=== PATIENT | male | born 1965 | race Caucasian/White ===

== ENCOUNTER 2023-09-28 06:50 | Outpatient (CLI) | payer OTHER, SELFPAY | END 2023-09-28 06:51 | disposition home or self-care (01) | LOC: INJ CL 06:51 | PROVIDERS: PCP Family Medicine; Visit Provider Family Medicine | DX: M54.16 Radiculopathy, lumbar region (principal); M51.26 Other intervertebral disc displacement, lumbar region | CPT/HCPCS: 64483; J1100; Q9966 ==

== ENCOUNTER 2023-12-14 06:40 | Outpatient (CLI) | payer OTHER, SELFPAY | END 2023-12-14 06:41 | disposition home or self-care (01) | LOC: INJ CL 06:40 | PROVIDERS: PCP Family Medicine; Visit Provider Family Medicine | DX: M54.16 Radiculopathy, lumbar region (principal); M51.26 Other intervertebral disc displacement, lumbar region | CPT/HCPCS: 64483; J0702; Q9966 ==

== ENCOUNTER 2025-07-06 13:25 | Emergency (ER) | payer OTHER, SELFPAY ==
--- OUTSIDE RECORDS SUMMARY | 2025-07-06 13:28 | XMS_ITS | Clinical Summary ---
Author Organization [facility] Address [address] [place] [address] Care Team Providers Care Smoke And Flame Specialist Name Role Phone Elsewhere, Pcp Primary Care Provider Unavailabl e Source Comments Patient records contain information from all sites at [facility]. For routine questions regarding patient records, call [phone] during business hours, M-F 8:00 AM - 5:00 PM Central Time. Record requests for emergency care only can be directed to [phone] at any time.[facility] Allergies Active AllergyReactionsCriticalityNoted DateCommentsAtorvastatinMyalgia 09/16/20186384ItvuzmvzvnZligq67/20/2015 Not allergy, just side effects of cough and not feeling well 2014. MetforminGI fvgnygwuqik94/05/0173OnxtuzWyht22/20/2006PravastatinOther (see comments)09/16/2018 Didn't feel well. AdrhuhwhzxasCicbvwerjong76/04/2022 Medications * This document contains information received from the source organization and may not represent a complete record from that organization. MedicationSigDispense QuantityRefillsLast FilledStart DateEnd DateStatus doxazosin (CARDURA) 4 mg tablet Take 4 mg by mouth daily.05/30/2021ctive tacrolimus (PROTOPIC) 0.1 % ointment Apply topically.05/02/2020Active triamcinolone (KENALOG) 0.1 % cream Apply topically.06/13/2021ctive aspirin 81 mg chewable tablet CHEW AND SWALLOW 1 TABLET BY MOUTH DAILY WITH BREAKFAST 36 tablet ctive glimepiride (AMARYL) 1 mg tablet Take 1 mg by mouth daily.03/30/2022ctive chlorthalidone (HYGROTON) 25 mg tablet Take 0.5 tablets (12.5 mg total) by mouth daily. Patient taking 12.5 mg daily 45 tablet ctive Additional Information Patient taking differently:12.5 mg oral Daily,Patient taking 25 mg daily, Reported on 05/01/2025 rosuvastatin (CRESTOR) 5 mg tablet Take 1 tablet (5 mg total) by mouth once a week. 12 tablet ctive carvediloL (COREG) 6.25 mg tablet TAKE 1 TABLET BY MOUTH TWICE A DAY WITH MEALS 60 tablet 06/23/2022ctive Additional Information Patient not taking.Reported on 05/01/2025 ezetimibe (ZETIA) 10 mg tablet Take 1 tablet (10 mg total) by mouth daily. 90 tablet 4Active cyclobenzaprine (FlexeriL) 10 mg tablet Take 10 mg by mouth as needed for muscle spasms.Active evolocumab (Repatha SureClick) 140 mg/mL pen injector injection Inject 1 mL (140 mg total) under the skin every 14 (fourteen) days. 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 Will recheck. Feb 2016: ALT 65, AST 45. December 2016: AST normal, ALT 63 Qxvnfaqbzhdvpqwnjbrx54/15/2016 Overview (03/19/2022): October 2015: ASCVD Risk Coal Digger: 7.9 % 10 Year risk after info entered, need to discuss statin at appointment. November 2015: Atorvastatin (Lipitor) started 10mg. Stopped after 2 weeks due to side effects. December 2016: trying pravastatin 10mg, ASCVD Risk Coal Digger: 9.2 % 10 Year risk after info entered prior to starting pravastatin. STopped pravastatin due to side effects. Feb 2019: Trying zetia. Only took short time, had side effects, but couldn't remember what. Mar 2021: Rosuvastatin (Crestor) 5mg every other day. Patient reports feeling cruddy ( Per phonemessage 05/07/2021) Diabetes Mellitus Type 2 Without Qjixantoaudy62/12/2015 Overview (03/19/2022): October 2014: fasting was 126. Hemoglobin A1c was 5.14 October 2015: fasting 135 and A1c 5.7. Prediabetes ordered. December 2015: fasting 130. December 2016: fasting 105. Mar 2018: Fasting 155, Hemoglobin A1c 6.3. Changed prediabetes to Type 2 Diabetes diagnosis. Feb 2020: Hemoglobin A1c 7.0. Starting metformin XR 500mg. Apr 2020: Had constipation and Emergency room visit, not sure was metformin. June 2020: Trying to slowly increase metformin 1 day more of taking metformin each week until taking 1 500mg tab a day. Other Intervertebral Disc Displacement Lumbar Tforwn2208/12/2014 Overview (03/19/2022): 2008 Lumbar MRI: L3-4 and L5-S1 disc bulge/annular tear. [id number]: physical therapy at [facility], some help. Lumbar MRI November 2014: shows improvement in L4-5 and L5-S1 disc herniations, multiple level degenerative disc changes. December 2014: PDR MedX program. April 2015: L4-[address] Motta. good benefit but short lived. ~ August 2015:L4-L5 Interlaminar epidural steroid injection by Dr. Motta. September 2015: started gabapentin (neurontin), side effects very groggy after trying 2 times so Patient stopped. Jun 2016: [facility] Dr. Chaparro Consult, repeat MRI ordered. Follow up with Dr. Chaparro Jul 2015, considering facet joint injection. December 2016: follow up with Dr. Chaparro, medrol dosepak. No Surgery indicated after reviewing repeat Lumbar Spine MRI December,. Mar 2019 to June 2019: physical therapy at [facility] with Javan Santos, 8 visits. Hypertension Essential Grregtu2507/20/2014 Overview (03/19/2022): October 2014: starting lisinopril for blood pressure. Almost immediate side effects of cough, feelingfunny, poor sleep so stopping lisinopril and changed to hydrochlorothiazide. January 2015: increased hydrochlorothiazide from 12.5 to 25mg. June 2015: adding amlodipine. Side effects Patient did not tolerate. September 2015: continue hydrochlorothiazide, adding losartan 12.5mg. December 2016: increased losartan to 50mg. Aug 2017: When on losartan was feeling lethargic, Erectile problems and muscle cramping, and within 2 days of stopping it symptoms all went away September 2018: Added amlodipine 5mg to hydrochlorothiazide. August 2019: Patient self stopped hydrochlorothiazide due to joint pain approximately May 2019. Continuing amlodipine. September 2019: Blood pressure high so increased amlodipine to 10mg. October 2019: Due to skin rash, decreased amlodipine to 5mg. Feb 2020: increased amlodipine back up to 10mg. May 2020: Due to worsening rash, stopping amlodipine. STarting doxazosin 1mg at night. June 2020: increased doxazosin to 2mg. Then doubled to 4mg. Jul 2020: back down to doxazosin 2 mg a day, decreased from previous 4 mg due to his side effects when he was at 4 mg of feeling his heart palpitations. Those palpitations resolved the next day afterdecreasing from 4 mg down to 2 mg dose. Mar 2021: increased doxazosin to 3mg. May 2021: Chlorthalidone 12.5mg added. May 2021: Increased Chlorthalidone to 25mg, continue Doxazosin at 4mg. Dermatitis Eqatmglyfh96/28/2004Lichen Simplex Arwkafhff19/28/2004Obesity Qgusoilbmtu77/28/2004 Resolved Problems ProblemNoted DateDiagnosed DateResolved DatePain Chest Encounters DateTypeDepartmentCare NdwmQykiazafwbz67/17/2025Clinical Communication Department of Cardiovascular Diseases in [address] [phone] Carmine Magana MPAS, P.A.-C. 05/01/2025 3:00 PM CDTOffice Visit Department of Cardiovascular Diseases in [address] [address] Sly Ventura M.D. Doherty, Sean R, MPAS, P.A.-C. 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 from Last 3 Months Family History Medical HistoryRelationNameCommentsCoronary artery diseaseFatherLowell HypertensionFatherLowellRelationNameStatusCommentsFatherLowell Social History Tobacco UseTypesPacks/DayYears UsedDateSmoking Tobacco: NeverSmokeless Tobacco: Never Tobacco Cessation:Counseling Given: Not Answered Alcohol UseStandard Drinks/WeekCommentsYes2 (1 standard drink = 0.6 oz pure alcohol)Humiliation, Afraid, Rape, and Kick questionnaireAnswerDate Recorded Within the last year, have you been afraid of your partner or ex-partner?No 03/23/2022Within the last year, have you been humiliated or emotionally abused in other ways by your partner or ex-partner?No03/23/2022Within the last year, have you been kicked, hit, slapped, or otherwise physically hurt by your partner or ex-partner?No03/23/2022Within the last year, have you been raped or forced to have any kind of sexual activity by your partner or ex-partner?No09/06/2022 Hunger Vital SignAnswerDate RecordedWithin the past 12 months, you worried that your food would run out before you got the money to buymore.Never true03/23/2022 Within the past 12 months, the food you bought just didn't last and you didn't have money to get more.Never true03/23/2022RAPARE - TransportationAnswerDate RecordedIn the past 12 months, has lack of transportation kept you from medical appointments or from getting medications?No03/23/2022In the past 12 months, has lack of transportation kept you from meetings, work, or from getting things needed for daily living?No03/23/2022Housing Stability Vital SignAnswerDate RecordedIn the last 12 months, was there a time when you were not able to pay the mortgage or rent on time?No03/23/2022In the last 12 months, how many places have you lived?In the last 12 months, was there a time when you did not have a steady place to sleep or slept [place] (including now)?No 03/23/2022ostpartum DepressionAnswerDate RecordedPHQ-9 Total Score (max 27)0 04/07/2022EducationAnswerDate RecordedWhat is the highest level of school you have completed or the highest degree you have received?12th grade03/23/2022ex and Gender InformationValueDate RecordedSex Assigned at UpoopZrmc82/12/2022 7:37 PM CDTLegal VksWowp39/06/2019 8:34 AM CSTGender KjpvmptkUqyd69/12/2022 7:37 PM CDTSexual OpznllwddbaIdsnpyyp57/12/2022 7:37 PM CDT Last Filed Vital Signs Vital SignReadingTime TakenCommentsBlood Vvzpcbvu159/8505/01/2025 2:43 PM CDT Ptuas147805/01/2025 2:41 PM XPAMihqmkmlvdz27.3 ??C (97.3 ??F)05/01/2025 2:41 PM CDTRespiratory Hbha204503/22/2022 4:30 PM CDTOxygen Jyuasmtyqk59%05/01/2025 2:41 PM CDTInhaled Oxygen Concentration--Ichnqw597 kg (270 lb 15.1 oz)05/01/2025 2:41 PM KLZMueqwz375 cm (5' 11.26)07/23/2022 1:00 PM CSTBody Mass Index37.51 07/23/2022 1:00 PM HOME CARE MANAGER RN Plan of Treatment Health MaintenanceDue DateLast DoneCommentsCT Xkfonlqdwrsq01/03/1964Cologuard 1963 9140Seweepspdup86/03/1964Colorectal Cancer Qnweizdtb68/03/1964Diabetic Eye Exam1963Diabetic Office Visit with Foot Exam1963FIT1963HIV Mrionyvip05/03/1964Hepatitis C Lhxgkqfja54/03/1964Office Visit for Blood Pressure Check / Re-check1963Urine Ouhgntn17 1963DTaP,Tdap,and Td Vaccines (1 - Tdap)12/12/1982RSV vaccine - (32-36 weeks) or 50+ years (1 - Risk 50-74 years 1-dose series)12/12/2013Zoster Vaccines (1 of 2)12/12/2013 Hepatitis B Vaccines (1 of 3 - Risk 3-dose series)4Depression Screening (Annual PHQ-2)5Creatinine Level (Kidney Function Test)09/06/2024 09/06/2023, 12/14/2022, 11/30/2022, Additional history existsPotassium Level , 12/14/2022, 11/30/2022, Additional history existsSodium Level5009/06/2023, 12/14/2022, 11/30/2022, Additional history exists COVID-19 Vaccine ( season), 06/13/2021, 10/24/2020, Additional history existsInfluenza Vaccine (#1)/ Hemoglobin A1C6003/05/2025, 11/30/2024, 07/28/2024, Additional history existsLipid (Cholesterol) Trgtsuuda33, 03/25/2023, 12/24/2022, Additional history existsPneumococcal vaccine (50+ years)Xkhvsugyh26/22/2025IPV VaccinesAged OutNo longer eligible based on patient's age to complete this topic Medical Devices ImplantedTypeAreaManufacturerDevice IdentifierShelf Expiration DateModel / Serial / LotStnt Synergy Xd De 4.00x24 - [id number] Implanted:Qty: 1 on 03/22/2022 by [facility] StentN/A: CoronaryBoston Owbytgecmi89/18/[id number] / / [id number]:Distal RCA Procedures Procedure NamePriorityDate/TimeAssociated DiagnosisCommentsLIPID PANEL, SRoutine 03/25/2023 1:02 PM CDT Hypercholesterolemia BASIC METABOLIC PANEL, S/AFnwsynb92/17/2022 8:35 AM HOME CARE MANAGER RN Pain Chest Other Hyperlipidemia Coronary Stent Status Post HEMOGLOBIN A1C, BSTAT03/20/2022 2:35 PM CDT from Last 3 Months or Most Recently Relevant to Health Maintenance Results * (ABNORMAL) Lipid Panel (03/25/2023 1:02 PM CDT)ComponentValueRef RangeTest MethodAnalysis TimePerformed AtPathologist IvgxkdvnjRlwxfsxzwecxk498(H)mg/dL 03/25/2023 1:29 PM CDTCNFLComment: ----REFERENCE VALUE---- Normal: <150 mg/dL Borderline High: 150-199 mg/dL High: 200-499 mg/dL Very High: > or =500 mg/dL Cholesterol, Bnpzh663sv/dL03/25/2023 1:29 PM CDTCNFLComment: ----REFERENCE VALUE---- Desirable: < 200 mg/dL Borderline High: 200 - 239 mg/dL High: > or = 240 mg/dL Cholesterol, LDL, Nvreemnhqk491og/dL03/25/2023 1:29 PM CDTCNFLComment: ----REFERENCE VALUE---- Desirable: <100 mg/dL Above Desirable: 100-129 mg/dL Borderline High: 130-159 mg/dL High: 160-189 mg/dL Very High: >=190 mg/dL ----ADDITIONAL INFORMATION---- LDL cholesterol calculated using the Hidalgo/NIH equation. Cholesterol, HDL46>=40 mg/dL03/25/2023 1:29 PM CDTCNFLCholesterol, Non-HDL, Jsvvmpmqqp826si/dL03/25/2023 1:29 PM CDTCNFLComment: ----REFERENCE VALUE---- Desirable: <130 mg/dL Above Desirable: 130-159 mg/dL Borderline High: 160-189 mg/dL High: 190-219 mg/dL Very High: > or =220 mg/dL Fasting (8 HR or more)no03/25/2023 1:03 PM CDTCNFLSpecimen (Source)Anatomical Location / LateralityCollection Method / VolumeCollection TimeReceived TimeBlood (Blood, Venous)03/25/2023 1:02 PM CDT03/25/2023 1:03 PM CDT Narrative Authorizing ProviderResult TypeResult StatusTybc Ventura M.D.LAB BLOOD ADD-ONFinal ResultPerforming OrganizationAddressCity/State/ZIP CodePhone Number [facility] [address] [place] [address], [facility] in [address] [address] * (ABNORMAL) Basic Metabolic Panel (05/28/2022 8:35 AM HOME CARE MANAGER RN)ComponentValueRef RangeTest MethodAnalysis TimePerformed AtPathologist SignaturePotassium, P3.6 3.6 - 5.2 mmol/L107/28/2021 9:03 AM CSTCNFLSodium, B194613 - 145 mmol/L 05/28/2022 9:03 AM CSTCNFLChloride, P9898 - 107 mmol/L107/28/2021 9:03 AM HOME CARE MANAGER RN CNFLBicarbonate, P2922 - 29 mmol/L107/28/2021 9:03 AM CSTCNFLAnion Gap, P97 - 15107/28/2021 9:03 AM CSTCNFLBUN (Blood Urea Nitrogen), P138 - 24 mg/dL 05/28/2022 9:03 AM CSTCNFLCreatinine0.750.74 - 1.35 mg/dL05/28/2022 9:03 AM CSTCNFLEstimated GFR (eGFR)>90>=60 mL/min/BSA05/28/2022 9:03 AM CSTCNFL Comment: Estimated GFR calculated using the 2020 CKD_EPI creatinine equation. Calcium, Total, P9.38.6 - 10.0 mg/dL05/28/2022 9:03 AM CSTCNFLGlucose, P168(H)70 - 140 mg/dL05/28/2022 9:03 AM CSTCNFLSpecimen (Source)Anatomical Location / LateralityCollection Method / VolumeCollection TimeReceived TimeBlood (Blood, Venous)05/28/2022 8:35 AM CST05/28/2022 8:37 AM HOME CARE MANAGER RN Narrative Authorizing ProviderResult TypeResult StatusTenluciana Oates APRN C.N.P., D.N.P. LAB BLOOD ADD-ONFinal ResultPerforming OrganizationAddressCity/State/ZIP Code Phone Number [facility] [address] [place] [address], [facility] CNNew [facility] [place] [address] * (ABNORMAL) Hemoglobin A1c (03/20/2022 2:35 PM CDT)ComponentValueRef RangeTest MethodAnalysis TimePerformed AtPathologist SignatureHemoglobin A1c, B7.9(H)4.0 - 5.6 %03/20/2022 3:20 PM CDTDTLComment: Hemoglobin A1c values greater than or equal to 6.5 percent are diagnostic for diabetes mellitus. ??Diagnosis should be confirmed by repeat testing. ??In diabetic patients, HbA1c goals should be discussed with healthcare provider. Specimen (Source)Anatomical Location / LateralityCollection Method / Volume Collection TimeReceived TimeBlood (Blood, Venous)03/20/2022 2:35 PM CDT 03/20/2022 3:07 PM CDT Narrative Authorizing ProviderResult TypeResult StatusZeyad Mayes APRN, C.N.P., M.S.N. LAB BLOOD ADD-ONFinal ResultPerforming OrganizationAddressCity/State/ZIP Code Phone Number [facility] [address] [place] [address], [place] DTL [facility]ly [facility] [address] [place] [address] from Last 3 Months or Most Recently Relevant to Health Maintenance Insurance Advance Directives For more information, please contact: [phone] * Full Code (Latest Code Status on File) Date ActivatedDate InactivatedComments03/20/2022 11:55 PM03/22/2022 7:19 PMQuestion AnswerCommentsFull Code:* Discussed Care Teams Team MemberRelationshipSpecialtyStart DateEnd Date Elsewhere, Pcp PCP - GeneralInternal Medicine03/20/22
--- OUTSIDE RECORDS SUMMARY | 2025-07-06 13:28 | XMS_ITS | Clinical Summary ---
Author Organization [facility] Address [address] [place] [address] Care Team Providers Care Organ Installer Name Role Phone Nelson Ybarra MD Primary Care Provider [phone] Allergies Active AllergyReactionsCriticalityNoted DateCommentsAtorvastatinMyalgia 09/16/20188295PhlnllwuwaRqqzl14/20/2015 Not allergy, just side effects of cough and not feeling well 2014. HpsvpozahJehbuvsurspi73/05/7259VaxbkjMfqp25/20/2006PravastatinOther - Describe In Comment Field09/16/2018 Didn't feel well. RosuvastatinPalpitations,Rdatdowa33/04/2022 Medications MedicationSigDispense QuantityRefillsLast FilledStart DateEnd DateStatus ibuprofen (ADVIL; MOTRIN) 200 mg tablet Take 1 tablet by mouth 4 times daily if needed.ctive aspirin chewable 81 mg chewable tablet Chew 81 mg by mouth.03/23/2022ctive ezetimibe (ZETIA) 10 mg tablet Take 10 mg by mouth once daily.03/22/2022ctive nitroglycerin (NITROSTAT) 0.[address] 0.4 mg under the tongue every 5 minutes if needed.03/22/2022ctive blood-glucose meter Indications:Type 2 diabetes mellitus without complication, without long-term current use of insulin (HC)Dispense glucose meter covered by the patient insurance. Test 1 times per day. Diagnosis Diabetes Type 2. 1 Kit 03/30/2022ctive lancets Indications:Type 2 diabetes mellitus without complication, without long-term current use of insulin (HC)As directed. Test 1 times per day. 100 Each ctive triamcinolone (ARISTOCORT; KENALOG) 0.1 % cream Indications:Skin rashApply topically to affected area(s) two times daily. Use Short term. 45 g ctive blood sugar diagnostic (Blood Glucose Test) strip Indications:Type 2 diabetes mellitus without complication, without long-term current use of insulin (HC)Dispense test strips covered by the patient insurance. Test 1 times per day. Diagnosis Diabetes Type 2. 100 Each ctive cyclobenzaprine (FLEXERIL) 10 mg tablet Indications:Lumbar disc herniation with radiculopathy1 tab by mount up at bedtime as needed for muscle spasm. May make you drowsy/ less alert. 60 Tablet ctive chlorthalidone (HYGROTON) 25 mg tablet Indications:Primary hypertensionTake 1 Tablet (25 mg) by mouth once daily. 90 Tablet ctive doxazosin (CARDURA) 4 mg tablet Indications:Primary hypertensionTake 1 Tablet (4 mg) by mouth at bedtime. For blood pressure. 90 Tablet ctive rosuvastatin (CRESTOR) 5 mg tablet Indications:Hyperlipidemia, unspecified hyperlipidemia typeTake one tab once a week for Cholesterol. 45 Tablet ctive glimepiride (AMARYL) 1 mg tablet Indications:Type 2 diabetes mellitus without complication, without long-term current use of insulin (HC)Take 1 Tablet (1 mg) by mouth once daily with a meal. For diabetes. 90 Tablet tive CPAP Indications:KRISTAL (obstructive sleep apnea)RESMED CPAP (E0601) machine for home use at pressure: 5-15cmw, Choice of mask (A7030 or A7034) w/full face cushion (A7031) x1/mo, nasal cushion (A7032) x2/mo, or nasal pillows (A7033) x 2/mo; Length of Need: 99 months; Frequency of use: Daily 1 Each 5Active Active Problems ProblemNoted DateDiagnosed DateLumbar disc herniation with radiculopathy 09/30/2023 Overview (09/30/2023): ~ September 2023: Right L5-S1 epidural steroid injection by Dr. Motta. Coronary artery disease involving [place] coronary artery of [place] heart without angina /19/2022 Overview (03/30/2022): Mar 2022: at [facility] 03/22/2022 and underwent PCI with drug-eluting stent to the distal RCA via rightradial site without complications. KRISTAL 07/14/2017 AHI-7. Overview (03/29/2025): November 2024: STarting Tirzepatide (Mounjaro). Not covered so tried ozempic, Mihir did not tolerate as hehad many side effects. Elevated liver bientft1901/05/2016 Overview (12/17/2016): December 2015: ALT 60 after starting Atorvastatin (Lipitor) 10mg. Will recheck. Feb 2016: ALT 65, AST 45. December 2016: AST normal, ALT 63 Qtcndvkbdkdzodxzlemg43/15/2016 Overview (05/07/2021): October 2015: ASCVD Risk Production Artist: 7.9 % 10 Year risk after info entered, need to discuss statin at appointment. November 2015: Atorvastatin (Lipitor) started 10mg. Stopped after 2 weeks due to side effects. December 2016: trying pravastatin 10mg, ASCVD Risk Production Artist: 9.2 % 10 Year risk after info entered prior to starting pravastatin. STopped pravastatin due to side effects. Feb 2019: Trying zetia. Only took short time, had side effects, but couldn't remember what. Mar 2021: Rosuvastatin (Crestor) 5mg every other day. Patient reports feeling cruddy ( Per phonemessage 05/07/2021) Type 2 diabetes mellitus without complication, without long-term current use of hxetdbv3310/21/2014 Overview (03/29/2025): October 2014: fasting was 126. Hemoglobin A1c [...] until taking 1 500mg tab a day. November 2024: Stopping Glimepiride and starting Mounjaro. Mounjaro not covered, changing to Semaglutide( Ozempic). Mihir did not tolerate Ozempic (Semaglutide) even at low doses so stopped Ozempic due to many side effects. Lumbar disc wfivcisywh86/01/2015 Overview (12/20/2023): 2008 Lumbar MRI: L3-4 and L5-S1 disc bulge/annular tear. 8280-2285: physical therapy at [facility], some help. Lumbar MRI November 2014: shows [...] 2 times so Patient stopped. Jun 2016: [facility] Dr. Chaparro Consult, repeat MRI ordered. Follow up with Dr. Chaparro Jul 2015, considering facet joint injection. December 2016: follow up with Dr. Chaparro, medrol dosepak. No Surgery indicated after reviewing repeat Lumbar Spine MRI December,. Mar 2019 to June 2019: physical therapy at [facility] with Javan Santos, 8 visits. ~ December 2023: L5-S1 TF epidural steroid injection by Dr. Motta. Primary tuivlxmzuwvf66/09/2015 Overview (11/30/2022): October 2014: starting lisinopril for blood pressure. [...] Chlorthalidone to 25mg, continue Doxazosin at 4mg. Mar 2022: Hospital for CAD and stent in RCA at [facility], During hospitalization added carvedilol. Stopping Chlorthalidone due to hypokalemia and adding Carvedilol. 04/06/2022: due to increased edema, restarted Chlorthalidone 12.5mg daily. June 2022: off carvedilol. November 2022: increased Chlorthalidone from 12.5mg to 25mg. PHYSICAL GENERAL EXAM05/27/2005FAMILY XAMDVBTG47/16/2005Obesity, unspecified 02/06/2004Seborrheic dermatitis, lrxzugsrgaq15/28/2004Lichenification and lichen simplex ccgkkadqa09/28/2004 Encounters DateTypeDepartmentCare NyskDfbvnrsqvxe19/26/2025Nurse Triage [facility] [address] [place] [address] Nelson Ybarra MD General Illness/Other07/02/2025 3:05 PM CSTTelemedicine [facility] [address] [place] [address] Nelson Ybarra MD Follow Up (Recheck fatigue, diarrhea, decreased appetite/Is feeling better. Trend on blood sugar isgoing down)06/24/2025Results Follow-Up [facility] [address] [place] [address] Nelson Ybarra MD 06/21/2025 2:40 PM CSTOffice Visit [facility] [address] [facility] [place] [address] Nelson Ybarra MD Fatigue (Loss appetite, feeling flush, blood sugar as been up and down and diarrhea x week )06/21/20255364Tlrzre81/08/2025 8:30 AM CDTOffice Visit [facility] [address] [facility] [place] [address] Noel Abdullahi MD Sleep Follow-up04/18/2025Travelfrom Last 3 Months Immunizations ImmunizationAdministration DatesNext DueCOVID-19 vaccine (Moderna 100mcg/0.5mL) PF, MDV04/,1COVID-19 vaccine (Moderna 50mcg/0.5mL) 12YO+ BIVALENT PF, MDV12COVID-19 vaccine (Moderna Booster 50mcg/0.25mL) PF, MDV108/14/2020Influenza, IIV3 (Age >=3 years)05/27/2005Pneumococcal Conj 20- valent (Prevnar 20)11/30/2024Td (Age >=7 Years)10/01/1999 Family History Medical HistoryRelationNameCommentsLeukemiaBrotherHeart DiseaseFatherGenetic Other 1father mi at 49.defibrillater at ageGeneticOther 2father mi at 49.defibrillater at age~1.colon cancer:no~~2. Breast cancer:~~3. Hyperlipidemia:yes dad~~4. Diabetes:no~~5.Coronary artery disease: DadRelation NameStatusCommentsBrotherFatherOther 1Other 2 Social History Tobacco UseTypesPacks/DayYears UsedDateSmoking Tobacco: NeverSmokeless Tobacco: Never Tobacco Cessation:Counseling Given: Yes Alcohol UseStandard Drinks/WeekCommentsYes3.3 (1 standard drink = 0.6 oz pure alcohol)Alcoholic Drinks/day: <1PHQ-2AnswerDate RecordedPHQ-2 TOTAL SCORE1 03/05/2025Social ConnectionsAnswerDate RecordedDo you often feel lonely or isolated from those around you?lcohol UseAnswerDate RecordedHow often do you have a drink containing alcohol?verage Number of Drinks Not on file06/21/2025How often do you have five or more drinks on one occasion?0 06/21/2025Financial Resource StrainAnswerDate RecordedDifficulty of Paying Living Ecrxfoee048/22/2025Difficulty of Paying Living ExpensesNot on file 11/30/2024Food InsecurityAnswerDate RecordedDo you worry your food will run out before you are able to buy more?Transportation NeedsAnswerDate RecordedDoes lack of transportation keep you from medical appointments?1 11/30/2024Does lack of transportation keep you from work, meetings or getting things that you need?Housing StabilityAnswerDate RecordedWhat is your housing situation today?UtilitiesAnswerDate RecordedDo you have trouble paying for utilities (for example, heat, electricity, water, phone)?1 11/30/2024Sex and Gender InformationValueDate RecordedSex Assigned at BirthNot on fileLegal NntGwmq6907/25/2012 5:25 AM CSTGender IdentityNot on fileSexual OrientationNot on file Last Filed Vital Signs Vital SignReadingTime TakenCommentsBlood Jehiipmp587/7606/21/2025 3:12 PM WAREHOUSE OPERATOR Njvyr467606/21/2025 2:42 PM FNJEcnpmeabhes06.7 ??C (98 ??F)06/21/2025 2:42 PM WAREHOUSE OPERATOR Respiratory Ssir333004/03/2024 7:54 AM CDTOxygen Ypwvzvjbrv26%06/21/2025 2:42 PM CSTInhaled Oxygen Concentration--Sjntvo046.3 kg (260 lb 12.8 oz)06/21/2025 2:42 PM BCSGaxsvy333.4 cm (5' 11.02)04/18/2025 8:29 AM CDTBody Mass Index36.35 04/18/2025 8:29 AM CDT Plan of Treatment DateTypeDepartmentCare Team (Latest Contact Info)Kzhmzbbyqpb16/09/2026 8:40 AM CDTOffice Visit [facility] [address] [place] [address] Nelson Ybarra MD [address] [place] [address] Health MaintenanceDue DateLast DoneCommentsHIV for age 15-65012/12/1978Tetanus bdvagxr61RSV vaccine for adults or (1 - Risk 50-74 years 1-dose series)12/12/2013Zoster (shingles) series for age 50+ (1 of 2) 12/12/2013COVID-19 vaccine series (2024- season), 06/13/2021, 10/24/2020, Additional history existsInfluenza Vaccine (#1) Fecal testing non-DNA (FIT,FOBT,iFOBT) for age 45-75 , 04/20/2023, 01/27/2022, Additional history exists Depression screening for age 12+, 02/28/2024, 11/30/2022, Additional history existsBMI (ht and wt on same day) for age 18+04/18/2026 04/18/2025, 11/27/2024, 09/06/2023, Additional history existsLipids for age 45-750, 02/28/2024, 03/31/2021, Additional history exists Hepatitis C screening for age 18-76Fyofqjfmp80/04/2019Pneumococcal series for age 50+Faozcbrwq69/22/2025Hepatitis B series for 19+Aged OutNo longer eligible based on patient's age to complete this topic Procedures Procedure NamePriorityDate/TimeAssociated DiagnosisCommentsCBC WITH AUTO LPAYGKWLKNGOUkkefqp20/11/2025 3:31 PM WAREHOUSE OPERATOR Fatigue, unspecified type HEMOGLOBIN A1C MONITORING (POCT)Qdzxzzi8206/21/2025 3:31 PM WAREHOUSE OPERATOR Type 2 diabetes mellitus without complication, without long-term current use of insulin (HC) TSH WITH TKOLKYTbdoets62/11/2025 3:31 PM WAREHOUSE OPERATOR Fatigue, unspecified type CBC WITH AUTO XQROFRPSAOSNOlkzgwm64/11/2025 3:31 PM WAREHOUSE OPERATOR Fatigue, unspecified type BASIC METABOLIC YLBZSXpqpbdk34/11/2025 3:31 PM WAREHOUSE OPERATOR Primary hypertension LIPID PANEL W REFLEX MEASURED SMHDujhbdw59/22/2025 8:33 AM CDT Hypercholesterolemia OCCULT BLOOD IFOBT XQQCRPuuphte47/17/2025 12:00 PM WAREHOUSE OPERATOR Screen for colon cancer ANTI BUBAdizxwv09/04/2019 7:08 AM CDT Need for hepatitis C screening test from Last 3 Months or Most Recently Relevant to Health Maintenance Results * CBC WITH AUTO DIFFERENTIAL (06/21/2025 3:31 PM WAREHOUSE OPERATOR)ComponentValueRef RangeTest MethodAnalysis TimePerformed AtPathologist SignatureWHITE BLOOD CELL COUNT7.5 3.8 - 10.8 Thousand/uL06/22/2025 4:23 AM CSTQUEST DIAGNOSTICSRED BLOOD CELL COUNT4.604.20 - 5.80 Million/uL06/22/2025 4:23 AM CSTQUEST DIAGNOSTICS ZUSSQUFPUG11.313.2 - 17.1 g/dL06/22/2025 4:23 AM CSTQUEST DIAGNOSTICS TSKQCADOJN81.539.4 - 51.1 %06/22/2025 4:23 AM CSTQUEST FMGHNHCRTNIDJB26.281.4 - 101.7 fL06/22/2025 4:23 AM CSTQUEST UFQATXQSGPMVDX50.127.0 - 33.0 pg 06/22/2025 4:23 AM CSTQUEST RDGTPOXKJFTGMHP96.531.6 - 35.4 g/dL06/22/2025 4:23 AM CSTQUEST FBMRBJFHDOFTKH71.211.0 - 15.0 %06/22/2025 4:23 AM CSTQUEST DIAGNOSTICSPLATELET EGXVZ137212 - 400 Thousand/uL06/22/2025 4:23 AM CSTQUEST GDKGVCMLOJVRPA75.87.5 - 12.5 fL06/22/2025 4:23 AM CST[facility] GHYZIGCMQZH63.9%06/22/2025 4:23 AM CSTQUEST TNLEIHCEFUCJVJNEXGQROS44.0% 06/22/2025 4:23 AM CSTQUEST DIAGNOSTICSMONOCYTES5.3%06/22/2025 4:23 AM WAREHOUSE OPERATOR [facility]AGNOSTICSEOSINOPHILS1.1%06/22/2025 4:23 AM CST[facility] DIAGNO[facility] BASOPHILS0.7%06/22/2025 4:23 AM CSTQUEST DIAGNOSTICSABSOLUTE ZBMYVHTKYCX1122 1500 - 7800 cells/uL06/22/2025 4:23 AM CSTQUEST DIAGNOSTICSABSOLUTE BLISXXYIOMW2535351 - 3900 cells/uL06/22/2025 4:23 AM CST[facility] ABSOLUTE NRXVZTOYV100737 - 950 cells/uL06/22/2025 4:23 AM CST[facility]AG[facility] ABSOLUTE XKPDARNTLKF6389 - 500 cells/uL06/22/2025 4:23 AM CST[facility] ABSOLUTE TGZSIDHXF481 - 200 cells/uL06/22/2025 4:23 AM CST[facility] DIAG[facility] Specimen (Source)Anatomical Location / LateralityCollection Method / Volume Collection TimeReceived TimeBloodBLOOD SPECIMEN / UnknownQuest Collect / Oyzimhq3306/21/2025 3:31 PM CST06/21/2025 3:31 PM WAREHOUSE OPERATOR Narrative Authorizing ProviderResult TypeResult StatusSaul Bruce Ybarra MDHEMATOLOGY Final ResultPerforming OrganizationAddressCity/State/ZIP CodePhone Number [facility] [address] [place] [address], * TSH WITH REFLEX (06/21/2025 3:31 PM WAREHOUSE OPERATOR)ComponentValueRef RangeTest Method Analysis TimePerformed AtPathologist SignatureTSH W/REFLEX TO FT41.760.40 - 4.50 mIU/L108/23/2024 6:37 AM CSTQUEST DIAGNOSTICSSpecimen (Source)Anatomical Location / LateralityCollection Method / VolumeCollection TimeReceived Time BloodBLOOD SPECIMEN / UnknownQuest Collect / Dhqyipu0306/21/2025 3:31 PM WAREHOUSE OPERATOR 06/21/2025 3:31 PM WAREHOUSE OPERATOR Narrative Authorizing ProviderResult TypeResult StatusKindred Hospitalisra [facility] MDCHEMISTRYFinal ResultPerforming OrganizationAddressCity/State/ZIP CodePhone Number [employer] [address] [address], [place] [phone] * (ABNORMAL) HEMOGLOBIN A1C MONITORING (POCT) (06/21/2025 3:31 PM WAREHOUSE OPERATOR)Component ValueRef RangeTest MethodAnalysis TimePerformed AtPathologist SignaturePOC HEMOGLOBIN A1C7.3(H)<6.0 % OF TOTAL HGB108/22/2024 3:48 PM CSTKAYENTA HEALTH CENTERComment: Any point of care results exhibiting inconsistency with the patient's clinical status should be repeated using a different testing method. Specimen (Source)Anatomical Location / LateralityCollection Method / Volume Collection TimeReceived TimeBloodBLOOD SPECIMEN / UnknownQuest Collect / Unknown 06/21/2025 3:31 PM CST06/21/2025 3:31 PM WAREHOUSE OPERATOR Narrative Authorizing ProviderResult TypeResult StatusLifecare Hospital Of [facility] Bruce Pittmanom MDCHEMISTRYFinal ResultPerforming OrganizationAddressty/State/ZIP CodePhone Number [employer] [address] [address], [place] [phone] [address], [place] [phone] * (ABNORMAL) BASIC METABOLIC PANEL (06/21/2025 3:31 PM WAREHOUSE OPERATOR)ComponentValueRef RangeTest MethodAnalysis TimePerformed AtPathologist UskjjiaapRNNORF300272 - 146 mmol/L108/23/2024 4:53 AM CSTQUEST DIAGNOSTICSPOTASSIUM3.83.5 - 5.3 mmol/L 06/22/2025 4:53 AM CSTQUEST DIAGNOSTICSCARBON YOWPWEK0040 - 32 mmol/L 06/22/2025 4:53 AM CSTQUEST VTWJJDZSVNPYOOOQLN285(H)65 - 99 mg/dL06/22/2025 4:53 AM CSTQUEST DIAGNOSTICSComment: ? Fasting reference interval For someone without known diabetes, a glucose value between 100 and 125 mg/dL is consistent with prediabetes and should be confirmed with a follow-up test. CALCIUM9.88.6 - 10.3 mg/dL06/22/2025 4:53 AM CSTQUEST DIAGNOSTICSCREATININE0.75 0.70 - 1.35 mg/dL06/22/2025 4:53 AM CSTQUEST DIAGNOSTICSBUN/CREATININE RATIOSEE NOTE:6 - (calc)06/22/2025 4:53 AM CSTQUEST DIAGNOSTICSComment: ?? Not Reported: BUN and Creatinine are within ?? reference range. ? KBPN347> OR = 60 mL/min/1.88b73606/22/2025 4:53 AM CSTQUEST DIAGNOSTICSUREA NITROGEN (BUN)97 - 25 mg/dL06/22/2025 4:53 AM CSTQUEST DIAGNOSTICSELECTROLYTE RELQCTO87 - 17 mmol/L (calc)06/22/2025 4:53 AM CSTQUEST YBOBXXELEEAUIDWHMIW38988 - 110 mmol/L108/23/2024 4:53 AM CSTQUEST DIAGNOSTICSSpecimen (Source)Anatomical Location / LateralityCollection Method / VolumeCollection TimeReceived TimeBlood BLOOD SPECIMEN / UnknownQuest Collect / Cgdkhur3906/21/2025 3:31 PM CST06/21/2025 3:31 PM WAREHOUSE OPERATOR Narrative Authorizing ProviderResult TypeResult StatusSaul Bruce Tate MDCHEMISTRYFinal ResultPerforming OrganizationAddressCity/State/ZIP CodePhone Number [facility] [address] [place] [address], * (ABNORMAL) LIPID PANEL W REFLEX MEASURED LDL (11/30/2024 8:33 AM CDT)Component ValueRef RangeTest MethodAnalysis TimePerformed AtPathologist Signature CHOLESTEROL, DEAVD339(H)<200 mg/dLQuest [facility]Wing-[facility] HSFPGHWREZM06 > OR = 40 mg/dLQuest PolyActiva FelqYFZWWYHXBNJZV234(H)<150 mg/dLPresbyterian Española Hospital PolyActiva [facility] HospitaleLDL-IEEYHVZKMVR718(H)mg/dL (calc)[facility] SouthWing-[facility] Health SystemeComment: Reference range: <100 Desirable range <100 mg/dL for primary prevention; <70 mg/dL for patients with CHD or diabetic patients with > or = 2 CHD risk factors. LDL-C is now calculated using the Marian calculation, which is a validated novel method providing better accuracy than the Friedewald equation in the estimation of LDL-C. Jarred LOVELL et al. KRISTOFER. 2013;310(19): 7390-6185 (http://education.Pain Doctor/faq/MQM447) CHOL/HDLC RATIO4.5<5.0 (calc)[employer] [facility] HospitalN HDL VSAEUHYRIBI087 (H)<130 mg/dL (calc)MgvMayo Clinic Health SystemeComment: For patients with diabetes plus 1 major ASCVD risk factor, treating to a non-HDL-C goal of <100 mg/dL (LDL-C of <70 mg/dL) is considered a therapeutic option. Specimen (Source)Anatomical Location / LateralityCollection Method / Volume Collection TimeReceived TimeBloodBLOOD SPECIMEN / Nzwtkvj7811/30/2024 8:33 AM CDT 11/30/2024 8:34 AM CDT Narrative [facility] - 12/01/2024 5:48 AM CDT FASTING:YES FASTING: YES Authorizing ProviderResult TypeResult StatusSaul Bruce Tate MDCHEMISTRYFinal ResultPerforming OrganizationAddressCity/State/ZIP CodePhone Number [employer] [facility] [address] [place] [address], [facility]St[facility] [address] [place] [address] * OCCULT BLOOD IFOBT STOOL (07/28/2024 12:00 PM WAREHOUSE OPERATOR)ComponentValueRef RangeTest MethodAnalysis TimePerformed AtPathologist SignatureSTOOL BLOOD ,IFOBTNegative Kacweocy02/29/2025 5:02 PM CSTVC[facility] Specimen (Source)Anatomical Location / LateralityCollection Method / Volume Collection TimeReceived TimeStoolSTOOL SPECIMEN / UnknownNon-Blood / Unknown 07/28/2024 12:00 PM CST08/08/2024 9:06 PM WAREHOUSE OPERATOR Narrative Authorizing ProviderResult TypeResult StatusNelson Ybarra MDLABORATORY Final ResultPerforming OrganizationAddressCity/State/ZIP CodePhone Number [facility] [address] [place] [address], * ANTI HCV (04/14/2019 7:08 AM CDT)ComponentValueRef RangeTest MethodAnalysis TimePerformed AtPathologist SignatureHEPATITIS C ANTIBODYNon-Reactive Non-Ntdcvdrj62/04/2019 6:23 PM CDTALHUTCHINSON [facility]ALTH [facility] Comment:Antibodies to HCV not detected; does not exclude the possibility of exposure to HCV.Specimen (Source)Anatomical Location / LateralityCollection Method / VolumeCollection TimeReceived TimeBloodBLOOD SPECIMEN / Unknown Butterfly / Clwgjlg9204/14/2019 7:08 AM CDT1 7:09 AM CDT Narrative Authorizing ProviderResult TypeResult StatusNelson Ybarra MDSEND OUTSFinal ResultPerforming OrganizationAddressCity/State/ZIP CodePhone Number [facility] [address] [place] [address], from Last 3 Months or Most Recently Relevant to Health Maintenance Insurance Care Teams Team MemberRelationshipSpecialtyStart DateEnd Date Nelson Ybarra MD [facility] [place] [address] [facility]11/30/22
--- OUTSIDE RECORDS SUMMARY | 2025-07-06 13:28 | XMS_ITS | Encounter Summary ---
Author Organization [facility] Address [address] [place] [address] Care Team Providers Care Oracle Data Warehouse Developer Name Role Phone Elsewhere, Pcp Primary Care Provider Unavailabl e Encounter Details DateTypeDepartmentCare Team (Latest Contact Info)Wrreackwymv37/17/2025Clinical Communication Department of Cardiovascular Diseases in [place], [place] [address] [place] [address] Carmine Magana, MPAS, P.A.-C. [address] [place] [address] Social History Tobacco UseTypesPacks/DayYears UsedDateSmoking Tobacco: NeverSmokeless Tobacco: NeverAlcohol UseStandard Drinks/WeekCommentsYes2 (1 standard drink = 0.6 [...] of sexual activity by your partner or ex-partner?No03/23/2022 Hunger Vital SignAnswerDate RecordedWithin the past 12 [...] steady place to sleep or slept in ashelter (including now)?No 03/23/2022ostpartum DepressionAnswerDate RecordedPHQ-9 Total Score (max 27)0 04/07/2022EducationAnswerDate RecordedWhat is the highest level of school you have completed or the highest degree you have received?12th grade03/23/2022ex and Gender InformationValueDate RecordedSex Assigned at WumbkTwll06/12/2022 7:37 PM CDTLegal OmoKhqf82/06/2019 8:34 AM CSTGender YjfrzqiqNijc46/12/2022 7:37 PM CDTSexual GklwhzmxblqQvdcswsz96/12/2022 7:37 PM CDTdocumented as of this encounter Miscellaneous Notes * Telephone Encounter - Carmine Magana P.A.-C. - 05/28/2025 12:16 PM HEEL COVERER MACHINE OPERATOR Dear Colleague: Mr. Walt Mccollum is under my cardiovascular care. 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 I do not have any further required testing or concerns from a cardiovascular perspective. Sincerely, COVERER MACHINE OPERATOR documented in this encounter Plan of Treatment Not on file documented as of this encounter Visit Diagnoses Not on filedocumented in this encounter Additional Health Concerns AssessmentNoted TimePHQ-9 Depression Total Score: 8:54 AM CDT documented as of this encounter Care Teams Team MemberRelationshipSpecialtyStart DateEnd Date Elsewhere, Pcp PCP - GeneralInternal Medicine03/20/22documented as of this encounter
[2025-07-06 13:35] VITALS: BP 144/74; PULSE 77; RESP 18; TEMP 36.6; O2SAT 98; BMI 35.7
--- NOTE | 2025-07-06 15:21 | ED.GENADULT ---
HPI - General Adult General Chief complaint: Unspecified Complaint, Adult Stated complaint: Fly symptoms, dehydration Time Seen by Provider: 07/06/25 15:03 History of Present Illness HPI narrative: This 59-year-old male comes in with his . He states that he is not feeling quite right but does not specifically identify distinct symptoms. He states that he had some diarrhea symptoms that sound like a gastroenteritis. Since then he has been taking lots of fluids. He has been to his doctor and has had labs done with reassuring results. He does have diabetes and is on some blood pressure and cholesterol medications. He does not report any fevers. He has some occasional mild abdominal pains. He arrives here with normal vital signs. Related Data Home Medications ?Medication ?Instructions ?Recorded ?Confirmed aspirin 81 mg chewable tablet 1 tab PO DAILY 11/21/22 07/06/25 chlorthalidone 25 mg tablet 12.5 mg PO DAILY 11/21/22 07/06/25 clopidogrel 75 mg tablet 75 mg PO DAILY 11/21/22 12/03/22 doxazosin 4 mg tablet 4 mg PO QPM blood pressure 11/21/22 07/06/25 ezetimibe 10 mg tablet 10 mg PO DAILY 11/21/22 07/06/25 Held on 07/06/25. Instructions: Doctor's Order glimepiride 1 mg tablet 1 mg PO DAILY diabetes mellitus 11/21/22 07/06/25 Previous Rx's ?Medication ?Instructions ?Recorded hydrocodone 5 mg-acetaminophen 325 1 tab PO Q6H PRN pain #10 tabs 12/03/22 mg tablet losartan 25 mg tablet 25 mg PO DAILY #20 tabs 07/06/25 Allergies Allergy/AdvReac Type Severity Reaction Status Date / Time niacin Allergy Intermediate Verified 07/06/25 13:38 Review of Systems Status of ROS: Reports: 10 or more systems reviewed and unremarkable except as noted in History and below Narrative: Constitutional: No fevers, no weight gain or loss. Eyes: No discharge. No vision changes. HENT: No congestion, no sore throat, no ear pain. Cardiovascular: No chest pain, no palpitations. Respiratory: No shortness of breath, no wheezes, no cough. Gastrointestinal: Occasional abdominal discomfort. He reports some more difficulty in passing stool but no blood in the toilet and has been have and regular bowel movements. Genitourinary: No dysuria, no hematuria. Musculoskeletal: Normal range of motion. Skin: No rashes, no pruritis. Neurological: No dizziness, weakness, sensory change, speech change. Endo/Heme/Allergies: No bruising or bleeding. No polydipsia. Pysch: no suicidality, no anxiety, no insomnia. All other systems reviewed and are negative. [facility] Medical History (Updated 07/06/25 @ 16:41 by Adonay Mendoza MD) Hypertension ?I10 - Essential (primary) hypertension (ICD-10) Surgical History (Updated 12/03/22 @ 17:02 by Rachana Tong, [employer], [employer]) S/P coronary artery stent placement ?Z95.5 - Presence of coronary angioplasty implant and graft (ICD-10) Social History Smoking Status: Never smoker How often do you have a drink containing alcohol: monthly or less AUDIT-C Alcohol total score: 1 Non-prescribed substance use: denies use service: No Exam Narrative: Exam Narrative: Constitutional: Well-developed, well-nourished, no acute distress. HEENT: Normocephalic, atraumatic. Neck: Normal range of motion. Nontender. Supple. Heart: Regular. No murmurs. Normal rate. Intact distal pulses. Lungs: Clear to auscultation. No chest discomfort. No wheezes, rhonchi, or rales. Abdomen: Normal bowel sounds. Nontender. No rebound tenderness. Genitalia: Deferred. Back: No midline tenderness. Normal range of motion. Extremities: Normal range of motion. No injury. Skin: Intact. No rash. Warm. No erythema or pallor. Neurologic: No altered sensation. No weakness. Alert and oriented. Psychiatric: No suicidality. No anxiety or depression. No insomnia. Nursing notes and vitals signs are reviewed. Const: Vital Signs, click to edit/add: Vital Signs - 24 hr 07/06/25 13:35 Temperature 98 F Pulse Rate [Pulse Oximeter] 77 Respiratory Rate 18 Blood Pressure [Ri ght Upper Arm] 144/74 H Pulse Oximetry 98 Oxygen Delivery Me thod Room Air Course Vital Signs Vital signs: Initial Vital Signs Temperature 98 F 07/06/25 13:35 Temperature Source Temporal Artery Scan 07/06/25 13:35 Pulse Rate 77 07/06/25 13:35 Pulse Rhythm Regular 07/06/25 13:35 Pulse Strength 3+ Normal 07/06/25 13:35 Respiratory Rate 18 07/06/25 13:35 Blood Pressure 144/74 H 07/06/25 13:35 Blood Pressure Mean 97 07/06/25 13:35 Blood Pressure Position Sitting 07/06/25 13:35 Pulse Oximetry 98 07/06/25 13:35 Oxygen Delivery Method Room Air 07/06/25 13:35 Vital Signs Temperature 98 F 07/06/25 13:35 Pulse Rate 77 07/06/25 13:35 Respiratory Rate 18 07/06/25 13:35 Blood Pressure 144/74 H 07/06/25 13:35 Pulse Oximetry 98 07/06/25 13:35 Oxygen Delivery Method Room Air 07/06/25 13:35 Temperature 98 F 07/06/25 13:35 Pulse Rate 77 07/06/25 13:35 Respiratory Rate 18 07/06/25 13:35 Blood Pressure 144/74 H 07/06/25 13:35 Pulse Oximetry 98 07/06/25 13:35 Oxygen Delivery Method Room Air 07/06/25 13:35 Medications Administered Medications: Discontinued Medications Generic Name Dose Route Start Last Admin Trade Name Elizabeth PRN Reason Stop Dose Admin Sodium Chloride 1,000 mls @ 1,000 mls/hr 07/06/25 15:30 07/06/25 15:56 0.9 % Sodium Chloride 1000 Ml IV 07/06/25 16:29 1,000 mls/hr .Q1H TATIANA Administration Medical Decision Making [facility] Narrative Medical decision making narrative: This patient received a L of normal saline intravenously and states that he is feeling much better. Labs are acquired and these returned with good results. His liver enzymes are slightly elevated. He does take a statin drug but has not done so in the last week or so. The patient states that he wonders if his chlorthalidone is messing with his symptoms. He has been drinking lots of water and taking electrolyte balanced liquids also. Again his electrolytes are normal here today. Given his history of diabetes I did state that it may be helpful to be on a MEG-inhibitor. He states that he gets a cough with lisinopril. I did prescribe some tablets of losartan and advised him to follow-up with his primary physician to consider a good blood pressure regimen going forward. He should take the losartan in the meantime instead of chlorthalidone until further directions come from his primary physician. Lab Data Labs: Lab Results 07/06/25 Range/Units 15:35 WBC 9.30 (4.50-11.00) K/uL RBC 5.04 (4.30-5.90) m/uL Hgb 15.6 (13.5-17.5) gm/dL Hct 44.9 (37.0-53.0) % MCV 89 (80-100) fL MCH 31 (26-34) pg MCHC 35 (32-36) gm/dL RDW Coeff of Sita 11.5 (11.5-15.5) % Plt Count 200 (140-440) K/uL Neut % (Auto) 68.0 (42.0-72.0) % Lymph % (Auto) 24.0 (20-44) % [place] % (Auto) 5.5 (0.0-11.0) % Eos % (Auto) 2.0 (0.0-7.0) % Baso % (Auto) 0.4 (0.0-3.0) % Neut # (Auto) 6.32 (1.7-7.0) K/uL Lymph # (Auto) 2.23 (0.90-2.90) K/uL [place] # (Auto) 0.50 (0.00-0.90) K/UL Eos # (Auto) 0.19 (0.00-0.50) K/uL Baso # (Auto) 0.04 (0.00-0.30) K/uL Abs Immat Gran (auto) 0.01 (0.00-0.30) K/uL Imm/Tot Granulo (auto) 0.1 % Sodium 137 (135-149) mmol/L Potassium 3.5 L (3.6-5.1) mmol/L Chloride 96 (96-114) mmol/L Carbon Dioxide 31 (20-32) mmol/L Anion Gap 10 (7-15) mEq/L BUN 10 (7-30) mg/dL Creatinine 0.7 (0.5-1.5) mg/dL Estimated Creat Clear 82.62 Estimated GFR 105 ml/min Glucose 110 (60-115) mg/dL Calcium 10.2 (8.4-10.6) mg/dL Total Bilirubin 1.3 (0.1-1.5) mg/dL Direct Bilirubin 0.4 (0.0-0.5) mg/dL AST 53 H (12-35) U/L ALT 78 H (4-50) U/L Alkaline Phosphatase 27 L (40-150) U/L Total Protein 8.1 (6.0-8.3) g/dL Albumin 5.0 (3.3-5.0) g/dL Discharge Plan Discharge Clinical Impression: Fluid volume depletion Patient Disposition: Home, Self-Care Condition: Stable Additional Instructions: Okay to hold chlorthalidone and take losartan instead until follow-up with primary physician to review ongoing plans. Prescriptions: New losartan 25 mg tablet 25 mg PO DAILY Qty: 20 0RF No Action hydrocodone-acetaminophen 5-325 mg tablet 1 tab PO Q6H PRN (Reason: pain) Qty: 10 0RF clopidogrel 75 mg tablet 75 mg PO DAILY chlorthalidone 25 mg tablet 12.5 mg PO DAILY glimepiride 1 mg tablet 1 mg PO DAILY doxazosin 4 mg tablet 4 mg PO QPM aspirin 81 mg tablet,chewable 1 tab PO DAILY ezetimibe 10 mg tablet 10 mg PO DAILY Follow Up/Referrals: Nelson Ybarra MD [Primary Care Provider, Family Practice] Stand Alone Forms: [facility] Info Instructions
[2025-07-06 15:46] LABS: Hematocrit* 44.9 % (37.0-53.0); Hemoglobin* 15.6 gm/dL (13.5-17.5); Immature Granulocytes Abs Auto 0.01 K/uL (0.00-0.30); Immature Granulocytes Pct Auto 0.1 %; Lymphocytes Absolute Auto 2.23 K/uL (0.90-2.90); Mean Corpuscular HGB Conc 35 gm/dL (32-36); Mean Corpuscular Hemoglobin 31 pg (26-34); Mean Corpuscular Volume 89 fL (80-100); RDW Coefficient of Variation % 11.5 % (11.5-15.5); Red Blood Count* 5.04 m/uL (4.30-5.90); White Blood Count* 9.30 K/uL (4.50-11.00)
[2025-07-06 15:48] LABS: Slide Review Reflex No
[2025-07-06 16:03] LABS: Albumin* 5.0 g/dL (3.3-5.0); Chloride* 96 mmol/L (96-114); Potassium* 3.5 mmol/L (3.6-5.1); Sodium* 137 mmol/L (135-149)
[2025-07-06 16:05] LABS: Blood Urea Nitrogen* 10 mg/dL (7-30); Creatinine* 0.7 mg/dL (0.5-1.5); Est. Creatinine Clearance* 82.62; Estimated Glomerular Filt Rate 105 ml/min
[2025-07-06 16:06] LABS: Alanine Aminotransferase* 78 U/L (4-50); Alkaline Phosphatase* 27 U/L (40-150); Anion Gap 10 mEq/L (7-15); Aspartate Amino Transferase* 53 U/L (12-35); Bilirubin Direct* 0.4 mg/dL (0.0-0.5); Bilirubin Total* 1.3 mg/dL (0.1-1.5); Calcium* 10.2 mg/dL (8.4-10.6); Carbon Dioxide* 31 mmol/L (20-32); Glucose* 110 mg/dL (60-115); Total Protein* 8.1 g/dL (6.0-8.3)
[2025-07-06 16:49] VITALS: BP 146/86; PULSE 65; RESP 16; O2SAT 97
== END 2025-07-06 16:51 | disposition home or self-care (01) ==
PROVIDERS: Emergency Provider Emergency Medicine Emergency Medical Services; PCP Family Medicine
DX: E86.0 Dehydration (principal); E86.9 Volume depletion, unspecified
CPT/HCPCS: 36415; 80048; 80076; 85025; 96360; 99283; 99284; J7030